=== PATIENT | female | born 1950 ===

== ENCOUNTER 2017-08-22 07:32 | Day surgery (SDC) | payer OTHER ==
[2017-08-22] MEDS ORDERED: Lactated Ringer's 500 ML IV ONE (08:54)
[2017-08-22] MEDS ORDERED: Propofol 10 mg/ml Inj (20 ML) ONE (10:00)
[2017-08-22] MEDS ORDERED: Lidocaine 2% MPF (5 ml) Inj ONE (10:00)
[2017-08-22] MEDS ORDERED: Midazolam 2 MG/2 ML VIAL ONE (10:00)
[2017-08-22] MEDS ORDERED: ePHEDrine 50 mg/ml Inj ONE (10:24)
[2017-08-22] MEDS ORDERED: Esmolol 100 mg/10ml Inj IV ONE (10:26)
[2017-08-22 11:02] VITALS: PULSE 107; RESP 21; TEMP 97; O2SAT 98
[2017-08-22 11:06] VITALS: BP 93/63
== END 2017-08-22 11:15 | disposition home or self-care (01) ==
LOC: H.ENDO 07:32
PROVIDERS: ATTEND Internal Medicine Gastroenterology
DX: Z12.11 Encounter for screening for malignant neoplasm of colon (principal); K64.8 Other hemorrhoids; K29.50 Unspecified chronic gastritis without bleeding; K44.9 Diaphragmatic hernia without obstruction or gangrene; R10.13 Epigastric pain; B96.81 Helicobacter pylori [H. pylori] as the cause of diseases classified elsewhere
CPT/HCPCS: 43239; 45378; 82948; 88305; J2250; J2704; J7120